=== PATIENT | male | born 1980 | race Two or more races ===

== ENCOUNTER 2021-07-21 18:42 | Emergency (ER) | payer SELFPAY ==
[~2021-07-21] VITALS: Ht 167.6 cm; Wt 93.0 kg
[2021-07-21 18:51] VITALS: BP 161/92
== END 2021-07-21 21:30 | disposition left against medical advice (07) ==
LOC: ER 18:42
DX: R36.9 Urethral discharge, unspecified (principal); Z53.21 Procedure and treatment not carried out due to patient leaving prior to being seen by health care provider